=== PATIENT | male | born 1955 | race Caucasian/White ===

== ENCOUNTER 2022-04-26 09:41 | Observation (INO) | payer MEDICARE, OTHER ==
--- NOTE | 2022-04-26 10:03 | ERPHSYRPT ---
- History of Present Illness Time Seen by Provider: 04/26/22 09:50 Source: patient Exam Limitations: no limitations Patient Subjective Stated Complaint: PT states "I woke up this morning a little short of breath and just sweating like crazy." Triage Nursing Assessment: Pt presented alert and oriented X 3, skin pwd Pt ambulates with a slow gait, able to speak in clear full sentences pt in no apparent respiratory distress. Physician History: Patient is a 67-year-old male presents emergency department for evaluation of shortness of breath. Patient states that shortness of breath started yesterday while he was cutting wood. at bedside states that patient drinks excessively. Patient smokes excessively. Patient denies chest pain. Patient feels lightheaded and occasionally dizzy. No nausea or vomiting however he does describe diaphoresis. Symptoms are constant. Symptoms are moderate in intensity. No specific worsening or improving factors. Patient denies history of the same. Patient voices no other complaints or concerns at this time. Timing/Duration: today Severity: moderate Modifying Factors: Improves With: nothing Associated Symptoms: denies symptoms Allergies/Adverse Reactions: No Known Drug Allergies Allergy (Verified 04/26/22 09:50) Home Medications: No Reportable Medications [No Reported Medications] 04/26/22 [History] Hx Tetanus, Diphtheria Vaccination/Date Given: No Hx Influenza Vaccination/Date Given: Yes Hx Pneumococcal Vaccination/Date Given: No Immunizations Up to Date: Yes Travel Risk - International Travel Have you traveled outside of the country in past 3 weeks: No - Coronavirus Screening Are you exhibiting any of the following symptoms?: No Close contact with a COVID-19 positive Pt in past 14-21 Days: No - Vaccine Status Have you recieved a Covid-19 vaccination: Yes 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 - Vaccination Dates Date of 2cond Vaccination (if applicable): 2020 - Review of Systems Constitutional: No Symptoms, No Fever, No Chills Eyes: No Symptoms Ears, Nose, & Throat: No Symptoms Respiratory: No Symptoms, No Cough, No Dyspnea Cardiac: No Symptoms, No Chest Pain, No Edema, No Syncope Abdominal/Gastrointestinal: No Symptoms, No Abdominal Pain, No Nausea, No Vomiting, No Diarrhea Genitourinary Symptoms: No Symptoms, No Dysuria Musculoskeletal: No Symptoms, No Back Pain, No Neck Pain Skin: No Symptoms, No Rash Neurological: No Symptoms, No Dizziness, No Focal Weakness, No Sensory Changes Psychological: No Symptoms Endocrine: No Symptoms Hematologic/Lymphatic: No Symptoms Immunological/Allergic: No Symptoms All Other Systems: Reviewed and Negative - Past Medical History Pertinent Past Medical History: No - Past Surgical History Past Surgical History: Yes Other Surgical History: right shoulder - Social History Smoking Status: Current every day smoker How long have you smoked: years Exposure to second hand smoke: Yes Drug Use: marijuana Patient Lives Alone: No - Nursing Vital Signs Nursing Vital Signs: Initial Vital Signs Temperature 97.6 F 04/26/22 09:42 Pulse Rate 67 04/26/22 09:42 Respiratory Rate 20 04/26/22 09:42 Blood Pressure 142/103 04/26/22 09:42 O2 Sat by Pulse Oximetry 95 04/26/22 09:42 Pain Scale Pain Intensity 0 - Physical Exam General Appearance: no apparent distress, alert Eye Exam: PERRL/EOMI, eyes nml inspection Ears, Nose, Throat Exam: normal ENT inspection, TMs normal, pharynx normal, moist mucous membranes Neck Exam: normal inspection, non-tender, supple, full range of motion Respiratory Exam: normal breath sounds, lungs clear, airway intact, No chest tenderness, No respiratory distress Cardiovascular Exam: regular rate/rhythm, normal heart sounds, normal peripheral pulses Gastrointestinal/Abdomen Exam: soft, normal bowel sounds, No tenderness, No mass Back Exam: normal inspection, normal range of motion, No CVA tenderness, No vertebral tenderness Extremity Exam: normal inspection, normal range of motion, pelvis stable Neurologic Exam: alert, oriented x 3, cooperative, normal mood/affect, sensation nml, No motor deficits Skin Exam: normal color, warm, dry, No rash Lymphatic Exam: No adenopathy SpO2 Interpretation: normal SpO2: 97 O2 Delivery: Room Air - Course Nursing assessment & vital signs reviewed: Yes EKG Interpreted by Me: RATE (66), Sinus Rhythm, NORMAL AXIS, Left Bundle Branch Block Ordered Tests: Active Orders 24 hr Category Date Time Status Ultrasonic Solderer STAT Care 04/26/22 09:56 Active EKG-ER Only STAT Care 04/26/22 09:55 Active IV Insertion STAT Care 04/26/22 09:55 Active Pulse Oximetry (ED) STAT Care 04/26/22 09:55 Active CHEST 1 VIEW (PORTABLE) Stat Exams 04/26/22 09:56 Completed ABG [ARTERIAL BLOOD GASES] Stat Lab 04/26/22 11:30 Completed CBC W DIFF Stat Lab 04/26/22 09:56 Completed CMP Stat Lab 04/26/22 09:56 Completed ETHYL ALCOHOL Stat Lab 04/26/22 09:56 Completed Lactic Acid Urgent Lab 04/26/22 11:42 Completed MAGNESIUM Stat Lab 04/26/22 09:56 Completed NT PRO BNP Stat Lab 04/26/22 09:56 Completed POCT GLUCOSE Stat Lab 04/26/22 12:03 Completed TROPONIN Q3H Lab 04/26/22 09:56 Completed TROPONIN Q3H Lab 04/26/22 13:15 Received TROPONIN Q3H Lab 04/26/22 16:00 Ordered TROPONIN Q3H Lab 04/26/22 19:00 Ordered TROPONIN Q3H Lab 04/26/22 22:00 Ordered UA W/RFX CULTURE Stat Lab 04/26/22 Ordered Medication Summary Generic Name Dose Route Start Last Admin Trade Name Pietroq PRN Reason Stop Dose Admin Thiamine HCl 100 mg/ 1,011.2 mls @ 100 mls/hr 04/26/22 10:45 04/26/22 11:11 Multivitamins/Minerals 10 ml/ IV 04/26/22 20:45 100 mls/hr Folic Acid 1 mg/ Sodium .Q10H7M DAVIN Administration Chloride Lactated Ringer's 1,000 mls @ 100 mls/hr 04/26/22 12:00 04/26/22 12:01 Lactated Ringers IV 05/26/22 11:59 100 mls/hr .Q10H DAVIN Administration Discontinued Medications Generic Name Dose Route Start Last Admin Trade Name Pietroq PRN Reason Stop Dose Admin Dextrose 50 ml 04/26/22 10:47 04/26/22 11:11 Dextrose 50%-Water 50 Ml Abboject IV 04/26/22 10:48 50 ml STAT ONE Administration Dextrose Confirm 04/26/22 10:50 Dextrose 50%-Water 50 Ml Abboject Administered 04/26/22 10:51 Dose 50 ml IV .STK-MED ONE Lab/Rad Data: Laboratory Result Diagrams 04/26/22 09:56 04/26/22 09:56 Laboratory Results 04/26/22 04/26/22 04/26/22 Range/Units Unknown 12:03 11:42 WBC (4.0-10.5) x10^3/uL RBC (4.1-5.6) x10^6/uL Hgb (12.5-18.0) g/dL Hct (42-50) % MCV (78-100) fL MCH (26-32) pg MCHC (32-36) g/dL RDW (11.5-14.0) % Plt Count (150-450) x10^3/uL MPV (7.5-11.0) fL Gran % (36.0-66.0) % Immature Gran % (Auto) (0.00-0.4) % Nucleat RBC Rel Count (0.00-0.1) % Eos # (Auto) (0-0.5) x10^3/uL Immature Gran # (Auto) (0.00-0.03) x10^3u/L Absolute Lymphs (auto) (1.0-4.6) x10^3/uL Absolute Monos (auto) (0.0-1.3) x10^3/uL Absolute Nucleated RBC (0.00-0.01) x10^3u/L Lymphocytes % (24.0-44.0) % Monocytes % (0.0-12.0) % Eosinophils % (0.00-5.0) % Basophils % (0.0-0.4) % Absolute Granulocytes (1.4-6.9) x10^3/uL Basophils # (0-0.4) x10^3/uL Puncture Site pCO2 (35-45) mmHg pO2 (75-100) mmHg Base Excess (-2.0-2.0) O2 Saturation (94-100) g/dF ABG pH (7.35-7.45) ABG HCO3 (22-28) ABG O2 Sat (Measured) (95-100) % Newton Test A-a Gradient a/A Ratio Hemoglobin Carboxyhemoglobin (0.0-6.9) % THgb Methemoglobin (1.4-1.5) % Temperature C POC O2 Flow Rate % Sodium (137-145) mmol/L Potassium (3.5-5.1) mmol/L Chloride (98-107) mmol/L Carbon Dioxide (22-30) mmol/L Anion Gap (5-15) MEQ/L BUN (9-20) mg/dL Creatinine (0.66-1.25) mg/dL Estimated GFR ML/MIN Glucose (74-106) mg/dL POC Glucometer 192 H (74 to 106) mg/dL Lactic Acid 5.2 H (0.4-2.0) Calcium (8.4-10.2) mg/dL Magnesium (1.6-2.3) mg/dL Total Bilirubin (0.2-1.3) mg/dL AST (17-59) U/L ALT (0-50) U/L Alkaline Phosphatase (38-126) U/L Troponin I (0.000-0.034) ng/mL NT-Pro-B Natriuret Pep (0-900) pg/mL Serum Total Protein (6.3-8.2) g/dL Albumin (3.5-5.0) g/dL Ethyl Alcohol (0-10) mg/dL Influenza Type A Ag NEGATIVE (NEGATIVE) Influenza Type B Ag NEGATIVE (NEGATIVE) RSV (PCR) NEGATIVE (Negative) SARS-CoV-2 (PCR) NEGATIVE (NEGATIVE) 04/26/22 04/26/22 04/26/22 Range/Units 11:30 09:56 09:56 WBC (4.0-10.5) x10^3/uL RBC (4.1-5.6) x10^6/uL Hgb (12.5-18.0) g/dL Hct (42-50) % MCV (78-100) fL MCH (26-32) pg MCHC (32-36) g/dL RDW (11.5-14.0) % Plt Count (150-450) x10^3/uL MPV (7.5-11.0) fL Gran % (36.0-66.0) % Immature Gran % (Auto) (0.00-0.4) % Nucleat RBC Rel Count (0.00-0.1) % Eos # (Auto) (0-0.5) x10^3/uL Immature Gran # (Auto) (0.00-0.03) x10^3u/L Absolute Lymphs (auto) (1.0-4.6) x10^3/uL Absolute Monos (auto) (0.0-1.3) x10^3/uL Absolute Nucleated RBC (0.00-0.01) x10^3u/L Lymphocytes % (24.0-44.0) % Monocytes % (0.0-12.0) % Eosinophils % (0.00-5.0) % Basophils % (0.0-0.4) % Absolute Granulocytes (1.4-6.9) x10^3/uL Basophils # (0-0.4) x10^3/uL Puncture Site LEFT RADIAL pCO2 37 (35-45) mmHg pO2 84 (75-100) mmHg Base Excess -7.5 L (-2.0-2.0) O2 Saturation 92.3 L (94-100) g/dF ABG pH 7.30 L (7.35-7.45) ABG HCO3 18.2 L (22-28) ABG O2 Sat (Measured) 97.2 (95-100) % Newton Test NOT APPLICABLE A-a Gradient 19 a/A Ratio 0.82 Hemoglobin 15.1 Carboxyhemoglobin 4.1 (0.0-6.9) % THgb Methemoglobin 0.9 L (1.4-1.5) % Temperature 37.0 C POC O2 Flow Rate 21 % Sodium (137-145) mmol/L Potassium 3.7 (3.5-5.1) mmol/L Chloride (98-107) mmol/L Carbon Dioxide (22-30) mmol/L Anion Gap (5-15) MEQ/L BUN (9-20) mg/dL Creatinine (0.66-1.25) mg/dL Estimated GFR ML/MIN Glucose (74-106) mg/dL POC Glucometer (74 to 106) mg/dL Lactic Acid (0.4-2.0) Calcium (8.4-10.2) mg/dL Magnesium (1.6-2.3) mg/dL Total Bilirubin (0.2-1.3) mg/dL AST (17-59) U/L ALT (0-50) U/L Alkaline Phosphatase (38-126) U/L Troponin I < 0.012 (0.000-0.034) ng/mL NT-Pro-B Natriuret Pep (0-900) pg/mL Serum Total Protein (6.3-8.2) g/dL Albumin (3.5-5.0) g/dL Ethyl Alcohol 58 H (0-10) mg/dL Influenza Type A Ag (NEGATIVE) Influenza Type B Ag (NEGATIVE) RSV (PCR) (Negative) SARS-CoV-2 (PCR) (NEGATIVE) 04/26/22 04/26/22 Range/Units 09:56 09:56 WBC 16.3 H (4.0-10.5) x10^3/uL RBC 4.48 (4.1-5.6) x10^6/uL Hgb 15.4 (12.5-18.0) g/dL Hct 45.8 (42-50) % MCV 102.2 H (78-100) fL MCH 34.4 H (26-32) pg MCHC 33.6 (32-36) g/dL RDW 12.9 (11.5-14.0) % Plt Count 337 (150-450) x10^3/uL MPV 9.8 (7.5-11.0) fL Gran % 78.1 H (36.0-66.0) % Immature Gran % (Auto) 0.7 H (0.00-0.4) % Nucleat RBC Rel Count 0.0 (0.00-0.1) % Eos # (Auto) 0 (0-0.5) x10^3/uL Immature Gran # (Auto) 0.12 H (0.00-0.03) x10^3u/L Absolute Lymphs (auto) 2.12 (1.0-4.6) x10^3/uL Absolute Monos (auto) 1.22 (0.0-1.3) x10^3/uL Absolute Nucleated RBC 0.00 (0.00-0.01) x10^3u/L Lymphocytes % 13.0 L (24.0-44.0) % Monocytes % 7.5 (0.0-12.0) % Eosinophils % 0.0 (0.00-5.0) % Basophils % 0.7 (0.0-0.4) % Absolute Granulocytes 12.72 H (1.4-6.9) x10^3/uL Basophils # 0.11 (0-0.4) x10^3/uL Puncture Site pCO2 (35-45) mmHg pO2 (75-100) mmHg Base Excess (-2.0-2.0) O2 Saturation (94-100) g/dF ABG pH (7.35-7.45) ABG HCO3 (22-28) ABG O2 Sat (Measured) (95-100) % Newton Test A-a Gradient a/A Ratio Hemoglobin Carboxyhemoglobin (0.0-6.9) % THgb Methemoglobin (1.4-1.5) % Temperature C POC O2 Flow Rate % Sodium 142 (137-145) mmol/L Potassium 3.5 (3.5-5.1) mmol/L Chloride 105 (98-107) mmol/L Carbon Dioxide 19 L (22-30) mmol/L Anion Gap 22.2 H (5-15) MEQ/L BUN 12 (9-20) mg/dL Creatinine 0.60 L (0.66-1.25) mg/dL Estimated GFR > 60.0 ML/MIN Glucose 44 L* (74-106) mg/dL POC Glucometer (74 to 106) mg/dL Lactic Acid (0.4-2.0) Calcium 10.0 (8.4-10.2) mg/dL Magnesium 2.0 (1.6-2.3) mg/dL Total Bilirubin 0.60 (0.2-1.3) mg/dL AST 36 (17-59) U/L ALT 17 (0-50) U/L Alkaline Phosphatase 99 (38-126) U/L Troponin I (0.000-0.034) ng/mL NT-Pro-B Natriuret Pep 55.9 (0-900) pg/mL Serum Total Protein 7.2 (6.3-8.2) g/dL Albumin 4.5 (3.5-5.0) g/dL Ethyl Alcohol (0-10) mg/dL Influenza Type A Ag (NEGATIVE) Influenza Type B Ag (NEGATIVE) RSV (PCR) (Negative) SARS-CoV-2 (PCR) (NEGATIVE) - Progress Progress: improved Progress Note: Case discussed with who advised transfer due to the complexity of the case. We contacted [facility]. I spoke to Dr. Mckay ER physician there. He stated that they will simply repeat patient's labs and discharge him home. did not agree with that plan. decided she did not want to go to [facility] and asked that we try [facility]. [facility] has no beds available. 04/26/22 13:[address] Car a second time and explained to him that the bed si tuation at [facility] and 's wishes and he agreed to keep patient in our our hospital. Counseled pt/family regarding: lab results, diagnosis, rad results - Departure Departure Disposition: Observation Clinical Impression: Hypoglycemia, Abnormal EKG, Generalized weakness, Alcoholic ketoacidosis, Leuko cytosis, High anion gap metabolic acidosis, Lactic acidosis Condition: Stable Critical Care Time: No Referrals: FRIDA DARLING [Primary Care Provider] - Follow up/PCP as directed
[2022-04-26 10:10] LABS: Absolute Neutrophil Ct (ANC) 12.72 x10^3/uL (1.4-6.9); Basophil (Absolute #) 0.11 x10^3/uL (0-0.4); Eosinophil (Absolute #) 0 x10^3/uL (0-0.5); Hematocrit 45.8 % (42-50); Hemoglobin 15.4 g/dL (12.5-18.0); Lymphocyte (Absolute #) 2.12 x10^3/uL (1.0-4.6); Mean Cell Volume 102.2 fL (78-100); Mean Corpuscular Hemoglobin 34.4 pg (26-32); Mean Corpuscular Hgb Concent. 33.6 g/dL (32-36); Mean Platelet Volume 9.8 fL (7.5-11.0); Monocyte (Absolute #) 1.22 x10^3/uL (0.0-1.3); Monocytes % 7.5 % (0.0-12.0); Neutrophil % 78.1 % (36.0-66.0); Platelet Count 337 x10^3/uL (150-450); Red Blood Count 4.48 x10^6/uL (4.1-5.6); Red Cell Distribution Width 12.9 % (11.5-14.0); White Blood Count 16.3 x10^3/uL (4.0-10.5)
--- NOTE | 2022-04-26 10:28 | XRAY ---
Indication: Short of breath. Comparison: None Portable chest hyperinflated and clear with incidental right perihilar calcified granulomas. Heart not enlarged. Bony thorax intact with mild osteopenia and degenerative changes. Impression: Nonacute hyperinflated chest with chronic features.
[2022-04-26 10:44] LABS: ALBUMIN 4.5 g/dL (3.5-5.0); ALKALINE PHOSPHATASE 99 U/L (38-126); ANION GAP 22.2 MEQ/L (5-15); BLOOD UREA NITROGEN 12 mg/dL (9-20); CHLORIDE 105 mmol/L (98-107); Carbon Dioxide 19 mmol/L (22-30); EST GLOMERULAR FILTRATION RATE > 60.0 ML/MIN; NT PRO BNP 55.9 pg/mL (0-900); Potassium 3.5 mmol/L (3.5-5.1); SGOT/AST 36 U/L (17-59); SGPT/ALT 17 U/L (0-50); SODIUM 142 mmol/L (137-145); Total Protein 7.2 g/dL (6.3-8.2)
[2022-04-26] MEDS ORDERED: THIAMINE 200 MG/2 ML*** 100 MG, Vitamins For Infusion 10 ML INJECTION*** 10 ML, FOLNATE... IV SCH ×4 (10:45)
[2022-04-26 10:46] LABS: Glucose 44 mg/dL (74-106)
[2022-04-26] MEDS ORDERED: D50W 50 ml Abboject IV ONE ×2 (10:47→10:50)
[2022-04-26 11:00] LABS: INFLUENZA A NEGATIVE (NEGATIVE); INFLUENZA B NEGATIVE (NEGATIVE); RESPIRATORY SYNCTIAL VIRUS NEGATIVE (Negative); SARS-CoV-2 Xpert Express NEGATIVE (NEGATIVE)
[2022-04-26 11:38] LABS: A-aADO2 19; ABG HEMOGLOBIN 15.1; ABG POTASSIUM 3.7 (3.5-5.1); ABG SITE LEFT RADIAL; ARTERIAL BLD GAS O2 SATURATION 97.2 % (95-100); ARTERIAL BLOOD GAS BASE EXCESS -7.5 (-2.0-2.0); ARTERIAL BLOOD GAS FIO2 21 %; ARTERIAL BLOOD GAS PCO2 37 mmHg (35-45); ARTERIAL BLOOD GAS PO2 84 mmHg (75-100); CARBOXYHEMOGLOBIN 4.1 % THgb (0.0-6.9); HCO3- 18.2 (22-28); HGB O2 SAT 92.3 g/dF (94-100); Methhemoglobin 0.9 % (1.4-1.5)
[2022-04-26] MEDS ORDERED: Lactated Ringers 1,000 ML IV SCH (12:00)
[2022-04-26] MEDS ORDERED: Senokot-S Tablet PO PRN (14:28)
[2022-04-26] MEDS ORDERED: TYLENOL 325 MG PO PRN (14:28)
[2022-04-26] MEDS ORDERED: MAALOX ES 30 ML UNIT DOSE PO PRN (14:28)
[2022-04-26] MEDS ORDERED: Zofran 4 MG/2 ML VIAL IV PRN (14:28)
[2022-04-26] MEDS ORDERED: MILK OF MAGNESIA 30 ML PO PRN (14:28)
[2022-04-26] MEDS ORDERED: solu-CORTEF 100MG ONE (14:42)
[2022-04-26] MEDS ORDERED: Ativan 2 MG/1 ML VIAL IV PRN (17:36)
--- NOTE | 2022-04-26 17:45 | PCM.HP ---
History of Present Illness - Chief Complaint Chief Complaint: c/o shortness of breath for 1 day History of Present Illness: is a 67 year old male.presents emergency department for evaluation of shortness of breath. Patient states that shortness of breath started yesterday while he was cutting wood. at bedside states that patient drinks excessively. Patient smokes excessively. Patient denies chest pain. Patient feels lightheaded and occasionally dizzy. No nausea or vomiting however he does describe diaphoresis. Symptoms are constant. Symptoms are moderate in intensity. No specific worsening or improving factors. Patient denies history of the same. Patient voices no other complaints or concerns at this time. Timing/Duration: today Severity: moderate Modifying Factors: Improves With: nothing Associated Symptoms: denies symptoms - Review of Systems Constitutional: No Fever, No Chills Eyes: No Symptoms Ears, Nose, & Throat: No Symptoms Respiratory: Orthopnea, Short Of Breath, Wheezing, No Cough Cardiac: No Chest Pain, No Edema, No Syncope Abdominal/Gastrointestinal: No Abdominal Pain, No Nausea, No Vomiting, No Diarrhea Genitourinary Symptoms: No Dysuria Musculoskeletal: No Back Pain, No Neck Pain Skin: No Rash Neurological: No Dizziness, No Focal Weakness, No Sensory Changes Psychological: No Symptoms Endocrine: No Symptoms Hematologic/Lymphatic: No Symptoms Immunological/Allergic: No Symptoms Medications & Allergies Home Medications: Home Medication List No Reportable Medications [No Reported Medications] 04/26/22 [History Confirmed 04/26/22] Allergies/Adverse Reactions: Allergies Allergy/AdvReac Type Severity Reaction Status Date / Time No Known Drug Allergies Allergy Verified 04/26/22 09:50 - Past Medical History Past Medical History: No Neurological History: No Pertinent History ENT History: No Pertinent History Cardiac History: No Pertinent History Respiratory History: No Pertinent History Endocrine Medical History: No Pertinent History Musculoskelatal History: No Pertinent History GI Medical History: No Pertinent History History: No Pertinent History Pyscho-Social History: No Pertinent History Male Reproductive Disorders: No Pertinent History - Past Surgical History Past Surgical History: Yes Neuro Surgical History: No Pertinent History Cardiac History: No Pertinent History Respiratory Surgery: No Pertinent History GI Surgical History: No Pertinent History Genitourinary Surgical Hx: No Pertinent History Musculskeletal Surgical Hx: No Pertinent History, Other Male Surgical History: No Pertinent History Other Surgical History: right shoulder surgery - Social History Smoking Status: Current every day smoker How long have you smoked: 46 yrs Exposure to second hand smoke: Yes Alcohol: Daily Drug Use: marijuana - Physical Exam Vital Signs: Vital Signs - 24 hr Temp Pulse Resp BP Pulse Ox 04/26/22 15:16 97.7 F 76 18 148/70 94 L 04/26/22 14:33 97.4 F 76 16 148/70 94 L 04/26/22 14:03 89 144/90 97 04/26/22 13:31 97 04/26/22 13:23 97.3 F 72 20 155/74 98 04/26/22 13:00 79 13 149/81 97 04/26/22 12:04 97.5 F 66 18 153/73 99 04/26/22 11:00 80 17 123/84 97 04/26/22 10:45 97.5 F 77 20 147/68 97 04/26/22 09:55 97 04/26/22 09:42 97.6 F 67 20 142/103 97 General Appearance: moderate distress, alert Neurologic Exam: alert, oriented x 3, cooperative, No motor deficits Eye Exam: PERRL/EOMI, eyes nml inspection Ears, Nose, Throat Exam: normal ENT inspection, TMs normal, pharynx normal, moist mucous membranes Neck Exam: normal inspection, non-tender, supple, full range of motion Respiratory Exam: crackles/rales, rhonchi, wheezing, No respiratory distress, No diminished breath sounds Cardiovascular Exam: regular rate/rhythm, normal heart sounds, normal peripheral pulses Gastrointestinal/Abdomen Exam: soft, normal bowel sounds, No tenderness, No mass Back Exam: normal inspection, normal range of motion, No CVA tenderness, No vertebral tenderness Extremity Exam: normal inspection, normal range of motion, pelvis stable Skin Exam: normal color, warm, dry, No rash Lymphatic Exam: No adenopathy Results - Labs Lab/Micro Results: Lab Results-Last 24 Hours 04/26/22 04/26/22 04/26/22 Range/Units 09:56 09:56 09:56 WBC 16.3 H (4.0-10.5) x10^3/uL RBC 4.48 (4.1-5.6) x10^6/uL Hgb 15.4 (12.5-18.0) g/dL Hct 45.8 (42-50) % MCV 102.2 H (78-100) fL MCH 34.4 H (26-32) pg MCHC 33.6 (32-36) g/dL RDW 12.9 (11.5-14.0) % Plt Count 337 (150-450) x10^3/uL MPV 9.8 (7.5-11.0) fL Gran % 78.1 H (36.0-66.0) % Immature Gran % (Auto) 0.7 H (0.00-0.4) % Nucleat RBC Rel Count 0.0 (0.00-0.1) % Eos # (Auto) 0 (0-0.5) x10^3/uL Immature Gran # (Auto) 0.12 H (0.00-0.03) x10^3u/L Absolute Lymphs (auto) 2.12 (1.0-4.6) x10^3/uL Absolute Monos (auto) 1.22 (0.0-1.3) x10^3/uL Absolute Nucleated RBC 0.00 (0.00-0.01) x10^3u/L Lymphocytes % 13.0 L (24.0-44.0) % Monocytes % 7.5 (0.0-12.0) % Eosinophils % 0.0 (0.00-5.0) % Basophils % 0.7 (0.0-0.4) % Absolute Granulocytes 12.72 H (1.4-6.9) x10^3/uL Basophils # 0.11 (0-0.4) x10^3/uL Puncture Site pCO2 (35-45) mmHg pO2 (75-100) mmHg Base Excess (-2.0-2.0) O2 Saturation (94-100) g/dF ABG pH (7.35-7.45) ABG HCO3 (22-28) ABG O2 Sat (Measured) (95-100) % Newton Test A-a Gradient a/A Ratio Hemoglobin Carboxyhemoglobin (0.0-6.9) % THgb Methemoglobin (1.4-1.5) % Temperature C POC O2 Flow Rate % Sodium 142 (137-145) mmol/L Potassium 3.5 (3.5-5.1) mmol/L Chloride 105 (98-107) mmol/L Carbon Dioxide 19 L (22-30) mmol/L Anion Gap 22.2 H (5-15) MEQ/L BUN 12 (9-20) mg/dL Creatinine 0.60 L (0.66-1.25) mg/dL Estimated GFR > 60.0 ML/MIN Glucose 44 L* (74-106) mg/dL POC Glucometer (74 to 106) mg/dL Lactic Acid (0.4-2.0) Calcium 10.0 (8.4-10.2) mg/dL Magnesium 2.0 (1.6-2.3) mg/dL Total Bilirubin 0.60 (0.2-1.3) mg/dL AST 36 (17-59) U/L ALT 17 (0-50) U/L Alkaline Phosphatase 99 (38-126) U/L Troponin I < 0.012 (0.000-0.034) ng/mL NT-Pro-B Natriuret Pep 55.9 (0-900) pg/mL Serum Total Protein 7.2 (6.3-8.2) g/dL Albumin 4.5 (3.5-5.0) g/dL Ethyl Alcohol (0-10) mg/dL Influenza Type A Ag (NEGATIVE) Influenza Type B Ag (NEGATIVE) RSV (PCR) (Negative) SARS-CoV-2 (PCR) (NEGATIVE) 04/26/22 04/26/22 04/26/22 Range/Units 09:56 11:30 11:42 WBC (4.0-10.5) x10^3/uL RBC (4.1-5.6) x10^6/uL Hgb (12.5-18.0) g/dL Hct (42-50) % MCV (78-100) fL MCH (26-32) pg MCHC (32-36) g/dL RDW (11.5-14.0) % Plt Count (150-450) x10^3/uL MPV (7.5-11.0) fL Gran % (36.0-66.0) % Immature Gran % (Auto) (0.00-0.4) % Nucleat RBC Rel Count (0.00-0.1) % Eos # (Auto) (0-0.5) x10^3/uL Immature Gran # (Auto) (0.00-0.03) x10^3u/L Absolute Lymphs (auto) (1.0-4.6) x10^3/uL Absolute Monos (auto) (0.0-1.3) x10^3/uL Absolute Nucleated RBC (0.00-0.01) x10^3u/L Lymphocytes % (24.0-44.0) % Monocytes % (0.0-12.0) % Eosinophils % (0.00-5.0) % Basophils % (0.0-0.4) % Absolute Granulocytes (1.4-6.9) x10^3/uL Basophils # (0-0.4) x10^3/uL Puncture Site LEFT RADIAL pCO2 37 (35-45) mmHg pO2 84 (75-100) mmHg Base Excess -7.5 L (-2.0-2.0) O2 Saturation 92.3 L (94-100) g/dF ABG pH 7.30 L (7.35-7.45) ABG HCO3 18.2 L (22-28) ABG O2 Sat (Measured) 97.2 (95-100) % Newton Test NOT APPLICABLE A-a Gradient 19 a/A Ratio 0.82 Hemoglobin 15.1 Carboxyhemoglobin 4.1 (0.0-6.9) % THgb Methemoglobin 0.9 L (1.4-1.5) % Temperature 37.0 C POC O2 Flow Rate 21 % Sodium (137-145) mmol/L Potassium 3.7 (3.5-5.1) mmol/L Chloride (98-107) mmol/L Carbon Dioxide (22-30) mmol/L Anion Gap (5-15) MEQ/L BUN (9-20) mg/dL Creatinine (0.66-1.25) mg/dL Estimated GFR ML/MIN Glucose (74-106) mg/dL POC Glucometer (74 to 106) mg/dL Lactic Acid 5.2 H (0.4-2.0) Calcium (8.4-10.2) mg/dL Magnesium (1.6-2.3) mg/dL Total Bilirubin (0.2-1.3) mg/dL AST (17-59) U/L ALT (0-50) U/L Alkaline Phosphatase (38-126) U/L Troponin I (0.000-0.034) ng/mL NT-Pro-B Natriuret Pep (0-900) pg/mL Serum Total Protein (6.3-8.2) g/dL Albumin (3.5-5.0) g/dL Ethyl Alcohol 58 H (0-10) mg/dL Influenza Type A Ag (NEGATIVE) Influenza Type B Ag (NEGATIVE) RSV (PCR) (Negative) SARS-CoV-2 (PCR) (NEGATIVE) 04/26/22 04/26/22 04/26/22 Range/Units 12:03 13:15 17:00 WBC (4.0-10.5) x10^3/uL RBC (4.1-5.6) x10^6/uL Hgb (12.5-18.0) g/dL Hct (42-50) % MCV (78-100) fL MCH (26-32) pg MCHC (32-36) g/dL RDW (11.5-14.0) % Plt Count (150-450) x10^3/uL MPV (7.5-11.0) fL Gran % (36.0-66.0) % Immature Gran % (Auto) (0.00-0.4) % Nucleat RBC Rel Count (0.00-0.1) % Eos # (Auto) (0-0.5) x10^3/uL Immature Gran # (Auto) (0.00-0.03) x10^3u/L Absolute Lymphs (auto) (1.0-4.6) x10^3/uL Absolute Monos (auto) (0.0-1.3) x10^3/uL Absolute Nucleated RBC (0.00-0.01) x10^3u/L Lymphocytes % (24.0-44.0) % Monocytes % (0.0-12.0) % Eosinophils % (0.00-5.0) % Basophils % (0.0-0.4) % Absolute Granulocytes (1.4-6.9) x10^3/uL Basophils # (0-0.4) x10^3/uL Puncture Site pCO2 (35-45) mmHg pO2 (75-100) mmHg Base Excess (-2.0-2.0) O2 Saturation (94-100) g/dF ABG pH (7.35-7.45) ABG HCO3 (22-28) ABG O2 Sat (Measured) (95-100) % Newton Test A-a Gradient a/A Ratio Hemoglobin Carboxyhemoglobin (0.0-6.9) % THgb Methemoglobin (1.4-1.5) % Temperature C POC O2 Flow Rate % Sodium (137-145) mmol/L Potassium (3.5-5.1) mmol/L Chloride (98-107) mmol/L Carbon Dioxide (22-30) mmol/L Anion Gap (5-15) MEQ/L BUN (9-20) mg/dL Creatinine (0.66-1.25) mg/dL Estimated GFR ML/MIN Glucose (74-106) mg/dL POC Glucometer 192 H (74 to 106) mg/dL Lactic Acid 2.2 H (0.4-2.0) Calcium (8.4-10.2) mg/dL Magnesium (1.6-2.3) mg/dL Total Bilirubin (0.2-1.3) mg/dL AST (17-59) U/L ALT (0-50) U/L Alkaline Phosphatase (38-126) U/L Troponin I < 0.012 (0.000-0.034) ng/mL NT-Pro-B Natriuret Pep (0-900) pg/mL Serum Total Protein (6.3-8.2) g/dL Albumin (3.5-5.0) g/dL Ethyl Alcohol (0-10) mg/dL Influenza Type A Ag (NEGATIVE) Influenza Type B Ag (NEGATIVE) RSV (PCR) (Negative) SARS-CoV-2 (PCR) (NEGATIVE) 04/26/22 Range/Units Unknown WBC (4.0-10.5) x10^3/uL RBC (4.1-5.6) x10^6/uL Hgb (12.5-18.0) g/dL Hct (42-50) % MCV (78-100) fL MCH (26-32) pg MCHC (32-36) g/dL RDW (11.5-14.0) % Plt Count (150-450) x10^3/uL MPV (7.5-11.0) fL Gran % (36.0-66.0) % Immature Gran % (Auto) (0.00-0.4) % Nucleat RBC Rel Count (0.00-0.1) % Eos # (Auto) (0-0.5) x10^3/uL Immature Gran # (Auto) (0.00-0.03) x10^3u/L Absolute Lymphs (auto) (1.0-4.6) x10^3/uL Absolute Monos (auto) (0.0-1.3) x10^3/uL Absolute Nucleated RBC (0.00-0.01) x10^3u/L Lymphocytes % (24.0-44.0) % Monocytes % (0.0-12.0) % Eosinophils % (0.00-5.0) % Basophils % (0.0-0.4) % Absolute Granulocytes (1.4-6.9) x10^3/uL Basophils # (0-0.4) x10^3/uL Puncture Site pCO2 (35-45) mmHg pO2 (75-100) mmHg Base Excess (-2.0-2.0) O2 Saturation (94-100) g/dF ABG pH (7.35-7.45) ABG HCO3 (22-28) ABG O2 Sat (Measured) (95-100) % Newton Test A-a Gradient a/A Ratio Hemoglobin Carboxyhemoglobin (0.0-6.9) % THgb Methemoglobin (1.4-1.5) % Temperature C POC O2 Flow Rate % Sodium (137-145) mmol/L Potassium (3.5-5.1) mmol/L Chloride (98-107) mmol/L Carbon Dioxide (22-30) mmol/L Anion Gap (5-15) MEQ/L BUN (9-20) mg/dL Creatinine (0.66-1.25) mg/dL Estimated GFR ML/MIN Glucose (74-106) mg/dL POC Glucometer (74 to 106) mg/dL Lactic Acid (0.4-2.0) Calcium (8.4-10.2) mg/dL Magnesium (1.6-2.3) mg/dL Total Bilirubin (0.2-1.3) mg/dL AST (17-59) U/L ALT (0-50) U/L Alkaline Phosphatase (38-126) U/L Troponin I (0.000-0.034) ng/mL NT-Pro-B Natriuret Pep (0-900) pg/mL Serum Total Protein (6.3-8.2) g/dL Albumin (3.5-5.0) g/dL Ethyl Alcohol (0-10) mg/dL Influenza Type A Ag NEGATIVE (NEGATIVE) Influenza Type B Ag NEGATIVE (NEGATIVE) RSV (PCR) NEGATIVE (Negative) SARS-CoV-2 (PCR) NEGATIVE (NEGATIVE) - Radiology Impressions Radiology Exams & Impressions: Radiology Procedures Category Date Time Status CHEST 1 VIEW (PORTABLE) Stat Exams 04/26/22 09:56 Completed - Other Procedures and Tests Respiratory Therapy 04/26/22 17:45 EKG ROUTINE 04/27/22 05:00 EKG ROUTINE 04/28/22 05:00 EKG ROUTINE 04/29/22 05:00 EKG ROUTINE Assessment/Plan (1) Shortness of breath Current Visit: Yes Status: Acute Code(s): R06.02 - SHORTNESS OF BREATH (2) Alcoholic ketoacidosis Current Visit: Yes Status: Acute Code(s): E87.2 - ACIDOSIS (3) Generalized weakness Current Visit: Yes Status: Acute Code(s): R53.1 - WEAKNESS (4) High anion gap metabolic acidosis Current Visit: Yes Status: Acute Code(s): E87.2 - ACIDOSIS
[2022-04-26] MEDS ORDERED: Sodium Chloride 0.9% 1000 ML 0 ML ONE (21:18)
[2022-04-26] MEDS ORDERED: Nicoderm CQ 21 MG TOP SCH (22:00)
[2022-04-26] MEDS: Lactated Ringers 1,000 ML IV SCH (22:36)
[2022-04-27 05:07] LABS: Risk Ratio 2.2
[2022-04-27] MEDS: Lactated Ringers 1,000 ML IV SCH (08:19)
[2022-04-27 09:42] LABS: Hemoglobin 13.2 g/dL (12.5-18.0); Mean Cell Volume 102.6 fL (78-100); Mean Corpuscular Hemoglobin 33.8 pg (26-32); Mean Platelet Volume 10.8 fL (7.5-11.0); Platelet Count 260 x10^3/uL (150-450); Red Cell Distribution Width 12.9 % (11.5-14.0); White Blood Count 8.8 x10^3/uL (4.0-10.5)
[2022-04-27 09:48] LABS: ALBUMIN 3.3 g/dL (3.5-5.0); ALKALINE PHOSPHATASE 65 U/L (38-126); ANION GAP 10.5 MEQ/L (5-15); BLOOD UREA NITROGEN 9 mg/dL (9-20); CHLORIDE 106 mmol/L (98-107); Calcium 8.8 mg/dL (8.4-10.2); Carbon Dioxide 23 mmol/L (22-30); Creatinine 1 0.54 mg/dL (0.66-1.25); EST GLOMERULAR FILTRATION RATE > 60.0 ML/MIN; Glucose 70 mg/dL (74-106); Potassium 3.8 mmol/L (3.5-5.1); SGOT/AST 108 U/L (17-59); SGPT/ALT 14 U/L (0-50); SODIUM 136 mmol/L (137-145); Total Protein 5.8 g/dL (6.3-8.2)
[2022-04-27 10:12] LABS: RBC 0-2 /HPF (0-2); WBC 0-2 /HPF (0-5)
[2022-04-27 10:13] LABS: Appearance CLEAR (CLEAR); Bilirubin NEGATIVE (NEGATIVE); Glucose NEGATIVE (NEGATIVE); Ketones MODERATE-40 (NEGATIVE); Ph 6.5 (5-6); Protein,Urine Dip NEGATIVE (Negative); RBC NEGATIVE Ery/ul (0-5); Specific Gravity 1.015 (1.005-1.025)
[2022-04-27 10:14] LABS: Bacteria NONE SEEN /HPF (NEGATIVE); Dipstick done @ ? MAIN LAB; Nitrite NEGATIVE (NEGATIVE); Urobilinogen 1 mg/dL (0-1)
[2022-04-27 10:15] LABS: Urine Cultured Indicated? NO
[2022-04-27 11:49] VITALS: BP 179/82; PULSE 70; O2SAT 99
--- NOTE | 2022-04-27 18:52 | PCM.DS ---
Discharge Summary Date of Admission: 04/26/22 14:21 Admitting Physician: WARNER HEREDIA Primary Care Provider: FRIDA DARLING Allergies Allergies No Known Drug Allergies Allergy (Verified 04/26/22 09:50) Hospital Summary - Hospital Course Hospital Course: Chief Complaint Diagnosis c/o shortness of breath for 1 day Allergies Allergy/AdvReac Type Severity Reaction Status Date / Time No Known Drug Allergies Allergy Verified 04/26/22 09:50 Vital Signs (Last 24 hours) Temp Pulse Resp BP Pulse Ox 04/27/22 11:48 98.4 F 70 16 179/82 99 04/27/22 07:41 97.8 F 67 16 138/63 98 04/27/22 04:10 97.3 F 81 18 147/78 97 04/26/22 23:28 97.1 F 63 18 156/79 96 04/26/22 20:00 97.7 F 73 18 138/68 96 Home Medications Medication Instructions Recorded Confirmed Last Taken Type Metoprolol Tartrate 50 mg 50 mg PO HS #30 tablet 04/27/22 Unknown Rx [Lopressor 50 MG] Naltrexone HCl 50 mg PO DAILY #30 tablet 04/27/22 Unknown Rx Current Medications Discontinued Medications Generic Name Dose Route Start Last Admin Trade Name Freq PRN Reason Stop Dose Admin Acetaminophen 650 mg 04/26/22 14:28 Acetaminophen 325 Mg Tablet PO 05/26/22 14:27 Q4H PRN PRN PAIN AND/OR FEVER Al Hydrox/Mg Hydrox/Simethicone 30 ml 04/26/22 14:28 Mag Hydrox/Al Hydrox/Simeth 30 Ml Udcup PO 05/26/22 14:27 Q4H PRN PRN INDIGESTION Dextrose 50 ml 04/26/22 10:47 04/26/22 11:11 Dextrose 50%-Water 50 Ml Abboject IV 04/26/22 10:48 50 ml STAT ONE Administration Dextrose Confirm 04/26/22 10:50 Dextrose 50%-Water 50 Ml Abboject Administered 04/26/22 10:51 Dose 50 ml IV .STK-MED ONE Hydrocortisone Sodium Succinate Confirm 04/26/22 14:42 Hydrocortisone Sod Succinate 100 Mg/Vial Vial Administered 04/26/22 14:43 Dose 100 mg .ROUTE .STK-MED ONE Thiamine HCl 100 mg/ 1,011.2 mls @ 100 mls/hr 04/26/22 10:45 04/26/22 11:11 Multivitamins/Minerals 10 ml/ IV 04/26/22 20:45 100 mls/hr Folic Acid 1 mg/ Sodium .Q10H7M DAVIN Administration Chloride Lactated Ringer's 1,000 mls @ 100 mls/hr 04/26/22 12:00 04/26/22 12:01 Lactated Ringers IV 05/26/22 11:59 100 mls/hr .Q10H DAVIN Administration Sodium Chloride Confirm 04/26/22 21:18 Sodium Chloride 0.9% 1000 Ml Administered 04/26/22 21:19 Dose 1,000 mls @ ud .ROUTE .STK-MED ONE Lactated Ringer's 1,000 mls @ 100 mls/hr 04/26/22 23:00 04/27/22 08:19 Lactated Ringers IV 05/26/22 22:59 100 mls/hr .Q10H DAVIN Administration Lorazepam 0 mg 04/26/22 17:36 Lorazepam 2 Mg/1 Ml 2 Mg Vial IV 05/26/22 17:35 Q2H PRN PRN CIWA SCORE Protocol Magnesium Hydroxide 30 - 60 ml 04/26/22 14:28 Magnesium Hydroxide 30 Ml Udcup PO 05/26/22 14:27 QDP PRN CONSTIPATION Nicotine 21 mg 04/26/22 22:00 04/26/22 20:47 Nicotine 21 Mg/Patch Patch TOP 05/26/22 21:59 21 mg Q24H DAVIN Administration Ondansetron HCl 4 mg 04/26/22 14:28 Ondansetron Hcl 4 Mg/2 Ml Vial IV 05/26/22 14:27 Q4H PRN PRN NAUSEA/VOMITING Senna/Docusate Sodium 2 udtab 04/26/22 14:28 Senna/Docusate Sodium 1 Udtab Tablet PO 05/26/22 14:27 BID PRN PRN CONSTIPATION Intake & Output (Last 24 hours) 04/25/22 04/26/22 04/27/22 04/28/22 11:59 11:59 11:59 11:59 Intake Total 3778 240 Balance 3778 240 Weight 64.5 kg 69.2 kg Laboratory Results (Last 24 hours) 04/27/22 04/27/22 04/27/22 09:42 04:20 04:20 WBC 8.8 RBC 3.90 L Hgb 13.2 Hct 40.0 L MCV 102.6 H MCH 33.8 H MCHC 33.0 RDW 12.9 Plt Count 260 MPV 10.8 Sodium 136 L Potassium 3.8 Chloride 106 Carbon Dioxide 23 Anion Gap 10.5 BUN 9 Creatinine 0.54 L Estimated GFR > 60.0 Glucose 70 L Calcium 8.8 Total Bilirubin 0.80 AST 108 H ALT 14 Alkaline Phosphatase 65 Troponin I Serum Total Protein 5.8 L Albumin 3.3 L Triglycerides Cholesterol LDL Cholesterol HDL Cholesterol Heart Disease Risk Ratio Urinalys Dipstick Clnc MAIN LAB Urine Color YELLOW Urine Appearance CLEAR Urine pH 6.5 Ur Specific [place] 1.015 POC Urine Protein Conf NEGATIVE Urine Ketones MODERATE-40 Urine Nitrite NEGATIVE Urine Bilirubin NEGATIVE Urine Urobilinogen 1 Urine Leukocytes NEGATIVE Urine WBC (Auto) 0-2 Urine RBC (Auto) 0-2 U Epithel Cells (Auto) NONE Urine Bacteria (Auto) NONE SEEN Urine RBC NEGATIVE Ur Culture Indicated? NO Urine Glucose NEGATIVE 04/27/22 04/26/22 04/26/22 04:20 22:50 19:00 WBC RBC Hgb Hct MCV MCH MCHC RDW Plt Count MPV Sodium Potassium Chloride Carbon Dioxide Anion Gap BUN Creatinine Estimated GFR Glucose Calcium Total Bilirubin AST ALT Alkaline Phosphatase Troponin I 0.013 < 0.012 Serum Total Protein Albumin Triglycerides 51 Cholesterol 121 LDL Cholesterol 49 HDL Cholesterol 56 Heart Disease Risk Ratio 2.2 Urinalys Dipstick Clnc Urine Color Urine Appearance Urine pH Ur Specific [place] POC Urine Protein Conf Urine Ketones Urine Nitrite Urine Bilirubin Urine Urobilinogen Urine Leukocytes Urine WBC (Auto) Urine RBC (Auto) U Epithel Cells (Auto) Urine Bacteria (Auto) Urine RBC Ur Culture Indicated? Urine Glucose 04/26/22 16:15 WBC RBC Hgb Hct MCV MCH MCHC RDW Plt Count MPV Sodium Potassium Chloride Carbon Dioxide Anion Gap BUN Creatinine Estimated GFR Glucose Calcium Total Bilirubin AST ALT Alkaline Phosphatase Troponin I < 0.012 Serum Total Protein Albumin Triglycerides Cholesterol LDL Cholesterol HDL Cholesterol Heart Disease Risk Ratio Urinalys Dipstick Clnc Urine Color Urine Appearance Urine pH Ur Specific [place] POC Urine Protein Conf Urine Ketones Urine Nitrite Urine Bilirubin Urine Urobilinogen Urine Leukocytes Urine WBC (Auto) Urine RBC (Auto) U Epithel Cells (Auto) Urine Bacteria (Auto) Urine RBC Ur Culture Indicated? Urine Glucose Orders (Last 24 hours) Category Date Time Status Discharge Routine Discharge 04/27/22 12:11 Ordered CBC Stat Lab 04/27/22 04:20 Completed CMP Stat Lab 04/27/22 04:20 Completed LIPID PROFILE AM.LAB Lab 04/27/22 04:20 Completed TROPONIN Q3H Lab 04/26/22 19:00 Completed TROPONIN Q3H Lab 04/26/22 22:50 Completed UA W/RFX CULTURE Stat Lab 04/27/22 09:42 Completed NaCl 0.9% 1000 ml [Sodium Chloride 0.9% 1000 ML] 1,000 Med 04/26/22 21:18 Discontinued ml .ROUTE UD Nicotine 21 mg [Nicoderm CQ 21 MG] Med 04/26/22 22:00 Discontinued 21 mg TOP Q24H Ringers Solution,Lactated [Lactated Ringers] 1,000 ml Med 04/26/22 23:00 Discontinued IV 100 mls/hr EKG ROUTINE RT 04/27/22 05:00 Completed EKG ROUTINE RT 04/28/22 05:00 Completed EKG ROUTINE RT 04/29/22 05:00 Completed Holter Monitor ONCE RT 04/27/22 11:56 Completed - Vitals & Intake/Output Vital Signs: Vital Signs Temperature 98.4 F 04/27/22 11:48 Pulse Rate 70 04/27/22 11:48 Respiratory Rate 16 04/27/22 11:48 Blood Pressure 179/82 04/27/22 11:48 O2 Sat by Pulse Oximetry 99 04/27/22 11:48 Intake & Output: Intake & Output 04/25/22 04/26/22 04/27/22 04/28/22 11:59 11:59 11:59 11:59 Intake Total 3778 240 Balance 3778 240 Weight 64.5 kg 69.2 kg - Lab Result Diagrams: 04/27/22 04:20 04/27/22 04:20 Lab Results-Last 24 Hrs: Lab Results-Last 24 Hours 04/26/22 04/26/22 04/26/22 Range/Units 16:15 19:00 22:50 WBC (4.0-10.5) x10^3/uL RBC (4.1-5.6) x10^6/uL Hgb (12.5-18.0) g/dL Hct (42-50) % MCV (78-100) fL MCH (26-32) pg MCHC (32-36) g/dL RDW (11.5-14.0) % Plt Count (150-450) x10^3/uL MPV (7.5-11.0) fL Sodium (137-145) mmol/L Potassium (3.5-5.1) mmol/L Chloride (98-107) mmol/L Carbon Dioxide (22-30) mmol/L Anion Gap (5-15) MEQ/L BUN (9-20) mg/dL Creatinine (0.66-1.25) mg/dL Estimated GFR ML/MIN Glucose (74-106) mg/dL Calcium (8.4-10.2) mg/dL Total Bilirubin (0.2-1.3) mg/dL AST (17-59) U/L ALT (0-50) U/L Alkaline Phosphatase (38-126) U/L Troponin I < 0.012 < 0.012 0.013 (0.000-0.034) ng/mL Serum Total Protein (6.3-8.2) g/dL Albumin (3.5-5.0) g/dL Triglycerides (30-150) mg/dL Cholesterol (50-200) mg/dL LDL Cholesterol (30-100) mg/dL HDL Cholesterol (40-60) mg/dL Heart Disease Risk Ratio Urinalys Dipstick Clnc Urine Color (YELLOW) Urine Appearance (CLEAR) Urine pH (5-6) Ur Specific [place] (1.005-1.025) POC Urine Protein Conf (Negative) Urine Ketones (NEGATIVE) Urine Nitrite (NEGATIVE) Urine Bilirubin (NEGATIVE) Urine Urobilinogen (0-1) mg/dL Urine Leukocytes (NEGATIVE) Urine WBC (Auto) (0-5) /HPF Urine RBC (Auto) (0-2) /HPF U Epithel Cells (Auto) (FEW) /HPF Urine Bacteria (Auto) (NEGATIVE) /HPF Urine RBC (0-5) Keith/ul Ur Culture Indicated? Urine Glucose (NEGATIVE) mg/dL 04/27/22 04/27/22 04/27/22 Range/Units 04:20 04:20 04:20 WBC 8.8 (4.0-10.5) x10^3/uL RBC 3.90 L (4.1-5.6) x10^6/uL Hgb 13.2 (12.5-18.0) g/dL Hct 40.0 L (42-50) % MCV 102.6 H (78-100) fL MCH 33.8 H (26-32) pg MCHC 33.0 (32-36) g/dL RDW 12.9 (11.5-14.0) % Plt Count 260 (150-450) x10^3/uL MPV 10.8 (7.5-11.0) fL Sodium 136 L (137-145) mmol/L Potassium 3.8 (3.5-5.1) mmol/L Chloride 106 (98-107) mmol/L Carbon Dioxide 23 (22-30) mmol/L Anion Gap 10.5 (5-15) MEQ/L BUN 9 (9-20) mg/dL Creatinine 0.54 L (0.66-1.25) mg/dL Estimated GFR > 60.0 ML/MIN Glucose 70 L (74-106) mg/dL Calcium 8.8 (8.4-10.2) mg/dL Total Bilirubin 0.80 (0.2-1.3) mg/dL AST 108 H (17-59) U/L ALT 14 (0-50) U/L Alkaline Phosphatase 65 (38-126) U/L Troponin I (0.000-0.034) ng/mL Serum Total Protein 5.8 L (6.3-8.2) g/dL Albumin 3.3 L (3.5-5.0) g/dL Triglycerides 51 (30-150) mg/dL Cholesterol 121 (50-200) mg/dL LDL Cholesterol 49 (30-100) mg/dL HDL Cholesterol 56 (40-60) mg/dL Heart Disease Risk Ratio 2.2 Urinalys Dipstick Clnc Urine Color (YELLOW) Urine Appearance (CLEAR) Urine pH (5-6) Ur Specific [place] (1.005-1.025) POC Urine Protein Conf (Negative) Urine Ketones (NEGATIVE) Urine Nitrite (NEGATIVE) Urine Bilirubin (NEGATIVE) Urine Urobilinogen (0-1) mg/dL Urine Leukocytes (NEGATIVE) Urine WBC (Auto) (0-5) /HPF Urine RBC (Auto) (0-2) /HPF U Epithel Cells (Auto) (FEW) /HPF Urine Bacteria (Auto) (NEGATIVE) /HPF Urine RBC (0-5) Keith/ul Ur Culture Indicated? Urine Glucose (NEGATIVE) mg/dL 04/27/ Range/Units 09:42 WBC (4.0-10.5) x10^3/uL RBC (4.1-5.6) x10^6/uL Hgb (12.5-18.0) g/dL Hct (42-50) % MCV (78-100) fL MCH (26-32) pg MCHC (32-36) g/dL RDW (11.5-14.0) % Plt Count (150-450) x10^3/uL MPV (7.5-11.0) fL Sodium (137-145) mmol/L Potassium (3.5-5.1) mmol/L Chloride (98-107) mmol/L Carbon Dioxide (22-30) mmol/L Anion Gap (5-15) MEQ/L BUN (9-20) mg/dL Creatinine (0.66-1.25) mg/dL Estimated GFR ML/MIN Glucose (74-106) mg/dL Calcium (8.4-10.2) mg/dL Total Bilirubin (0.2-1.3) mg/dL AST (17-59) U/L ALT (0-50) U/L Alkaline Phosphatase (38-126) U/L Troponin I (0.000-0.034) ng/mL Serum Total Protein (6.3-8.2) g/dL Albumin (3.5-5.0) g/dL Triglycerides (30-150) mg/dL Cholesterol (50-200) mg/dL LDL Cholesterol (30-100) mg/dL HDL Cholesterol (40-60) mg/dL Heart Disease Risk Ratio Urinalys Dipstick Clnc MAIN LAB Urine Color YELLOW (YELLOW) Urine Appearance CLEAR (CLEAR) Urine pH 6.5 (5-6) Ur Specific [place] 1.015 (1.005-1.025) POC Urine Protein Conf NEGATIVE (Negative) Urine Ketones MODERATE-40 (NEGATIVE) Urine Nitrite NEGATIVE (NEGATIVE) Urine Bilirubin NEGATIVE (NEGATIVE) Urine Urobilinogen 1 (0-1) mg/dL Urine Leukocytes NEGATIVE (NEGATIVE) Urine WBC (Auto) 0-2 (0-5) /HPF Urine RBC (Auto) 0-2 (0-2) /HPF U Epithel Cells (Auto) NONE (FEW) /HPF Urine Bacteria (Auto) NONE SEEN (NEGATIVE) /HPF Urine RBC NEGATIVE (0-5) Keith/ul Ur Culture Indicated? NO Urine Glucose NEGATIVE (NEGATIVE) mg/dL - Radiology Exams Ordered Rad Exams-Entire Visit: Radiology Procedures Category Date Time Status CHEST 1 VIEW (PORTABLE) Stat Exams 04/26/22 09:56 Completed - Procedures and Test Procedures and Tests throughout Hospitalization: Therapy Orders & Screens 04/26/22 17:45 EKG ROUTINE Comment: Diagnosis: Alcoholic ketoacidosis, abnormal EKG 04/27/22 05:00 EKG ROUTINE Comment: Diagnosis: Alcoholic ketoacidosis, abnormal EKG 04/27/22 11:56 Holter Monitor ONCE Comment: Reason For Exam: ARRHYTHMIA Diagnosis: c/o shortness of breath for 1 day 04/28/22 05:00 EKG ROUTINE Comment: Diagnosis: Alcoholic ketoacidosis, abnormal EKG 04/29/22 05:00 EKG ROUTINE Comment: Diagnosis: Alcoholic ketoacidosis, abnormal EKG Discharge Exam General Appearance: no apparent distress, alert Neurologic Exam: alert, oriented x 3, cooperative, normal mood/affect, nml cerebellar function, sensation nml, No motor deficits Eye Exam: PERRL, EOMI, eyes nml inspection Ears, Nose, Throat Exam: normal ENT inspection, pharynx normal, moist mucous membranes Neck Exam: normal inspection, non-tender, supple, full range of motion Respiratory Exam: normal breath sounds, lungs clear, No respiratory distress Cardiovascular Exam: regular rate/rhythm, normal heart sounds Gastrointestinal/Abdomen Exam: soft, No tenderness, No mass Male Genitalia Exam: deferred Rectal Exam: deferred Back Exam: normal inspection, normal range of motion, No CVA tenderness, No vertebral tenderness Extremity Exam: normal inspection, normal range of motion Skin Exam: normal color, warm, dry Final Diagnosis/Problem List - Final Discharge Diagnosis/Problem (1) Shortness of breath Status: Resolved Code(s): R06.02 - SHORTNESS OF BREATH (2) Alcoholic ketoacidosis Status: Resolved Code(s): E87.2 - ACIDOSIS (3) Generalized weakness Status: Resolved Code(s): R53.1 - WEAKNESS (4) High anion gap metabolic acidosis Status: Resolved Code(s): E87.2 - ACIDOSIS (5) Syncope Status: Resolved Assessment & Plan: will get holter monitor Code(s): R55 - SYNCOPE AND COLLAPSE (6) Abnormal EKG Status: Acute Code(s): R94.31 - ABNORMAL ELECTROCARDIOGRAM [ECG] [EKG] - Discharge Discharge Date: 04/27/22 Disposition: Home, Self-Care Condition: Stable Prescriptions: New Metoprolol Tartrate 50 mg [Lopressor 50 MG] 50 mg PO HS #30 tablet Naltrexone HCl 50 mg PO DAILY #30 tablet Instructions: Ambulatory Cardiac Monitoring (DC), Shortness of Breath (Dyspnea) (DC), Alcohol Use Disorder (DC) Additional Instructions: DO NOT START METOPROLOL UNTIL HOLTER MONITOR IS FINISHED Follow up with: WARNER HEREDIA MD [ACTIVE STAFF] - 05/04/22 10:30 am Forms: Discharge Instructions
== END 2022-04-27 13:30 | disposition home or self-care (01) ==
LOC: ED 09:41 → MED SURG 14:21
PROVIDERS: ADMIT General Practice; ATTEND General Practice
DX: R06.02 Shortness of breath (principal); E87.2 Acidosis; R53.1 Weakness; R55 Syncope and collapse; R94.31 Abnormal electrocardiogram [ECG] [EKG]; F10.20 Alcohol dependence, uncomplicated; Z20.828 Contact with and (suspected) exposure to other viral communicable diseases; Z72.0 Tobacco use
CPT/HCPCS: 0241U; 36000; 36415; 36600; 71045; 80053; 80061; 81015; 82375; 82803; 82947; 83605; 83721; 83735; 83880; 84484; 85025; 85027; 93005; 93041; 94760; 96374; 96375; 99285; G0480; 80307; 93268; J1720; A9270-GY; G0378